=== PATIENT | female | born 1955 | race Caucasian/White ===

== ENCOUNTER 2024-04-13 12:34 | Outpatient (CLI) | payer MEDICARE, BC, SELFPAY ==
[2024-04-13 13:48] VITALS: BP 120/68; PULSE 79; RESP 20
--- NOTE | 2024-04-13 13:58 | W.PM.STED ---
Stress Test Note Date Date of test: 04/13/24 Providers Primary care provider: Kamilla Voss Stress test physician: Jay Jay Mcarthur Stress Test Note Stress test ordered: Stress Echo Indication for test: Chest pain Results discussion: Patient is a very nice 69-year-old female who presents here for the above test after discussion the risks benefits and side effects she would like to proceed. Cardiac stress test medical history form is reviewed in detail. Pretest EKG shows normal sinus rhythm, incomplete right bundle bunch block configuration is noted. With a heart rate of 67, ST wave abnormalities ST wave flattening is noted throughout the precordium. Standard Marcel protocol is employed over a time course of 6 minutes 9 seconds, she achieved a metabolic equivalent of 7.3 Mets, test is terminated because of inducement of fatigue and shortness of breath, during this test there is no appreciable ST wave changes suggestive of ischemia. There is no dysrhythmias, Impression: Negative electrographic portion of stress echo, conditioning felt to be poor Follow up suggested: Await echo imaging report, clinical correlation with this will be needed. Patient left this testing facility in good condition there were no complications.
== END 2024-04-13 12:35 | disposition home or self-care (01) ==
PROVIDERS: PCP Family Medicine; Visit Provider Family Medicine
DX: R07.89 Other chest pain (principal)
CPT/HCPCS: 93016; 93325; 93351